=== PATIENT | male | born 1975 | race African-American/Black ===

== ENCOUNTER 2024-02-15 22:36 | Emergency (ER) | payer SELFPAY ==
[~2024-02-15] VITALS: Ht 193 cm; Wt 97.7 kg
[2024-02-15 22:50] VITALS: BP 146/87; PULSE 61; RESP 20; O2SAT 96
== END 2024-02-16 00:18 | disposition left against medical advice (07) ==
LOC: EDBD 22:36 → ER 22:36
DX: M79.601 Pain in right arm (principal); R10.9 Unspecified abdominal pain; M54.9 Dorsalgia, unspecified; Z53.21 Procedure and treatment not carried out due to patient leaving prior to being seen by health care provider; V43.62XA Car passenger injured in collision with other type car in traffic accident, initial encounter; Y93.89 Activity, other specified; Y92.89 Other specified places as the place of occurrence of the external cause; Y99.8 Other external cause status